=== PATIENT | male | born 1975 | race Caucasian/White ===

== ENCOUNTER 2018-08-09 03:34 | Emergency (ER) | payer MEDICAID ==
[~2018-08-09] VITALS: Ht 182.9 cm; Wt 82.0 kg
[2018-08-09] MEDS ORDERED: ACETAMINOPHEN 325MG TABLET PO ONE (06:15)
[2018-08-09 09:21] VITALS: BP 124/86
[2018-08-09] MEDS ORDERED: KETOROLAC 60MG/2ML VIAL IM ONE (09:30)
== END 2018-08-09 09:36 | disposition home or self-care (01) ==
LOC: ER 03:34
DX: S60.221A Contusion of right hand, initial encounter (principal); H91.90 Unspecified hearing loss, unspecified ear; R03.0 Elevated blood-pressure reading, without diagnosis of hypertension; Z59.0 Homelessness; W01.0XXA Fall on same level from slipping, tripping and stumbling without subsequent striking against object, initial encounter; Y93.89 Activity, other specified; Y92.488 Other paved roadways as the place of occurrence of the external cause
CPT/HCPCS: 73130; 96372; 99284; J1885